=== PATIENT | female | born 1995 | race African-American/Black ===

== ENCOUNTER 2016-12-11 18:37 | Emergency (ER) | payer OTHER ==
[~2016-12-11] VITALS: Ht 157.5 cm; Wt 59.0 kg
[~2016-12-11 18:37] MED LIST: CYCL10TA2 PO; PRED20TA PO; PROAIR HFA8.5 GM INH
[2016-12-11 18:42] VITALS: BP 117/66
--- NOTE | 2016-12-11 19:00 | PHYS DOC ---
Past Medical History Past Medical History: Asthma, Bronchitis Past Surgical History: Other Additional Past Surgical Histo: osteomyelitis in right foot Alcohol Use: None Drug Use: None Adult General Chief Complaint Chief Complaint: FLU SYMPTOM HPI HPI Patient is a 21 year old female who presents the emergency room today with 2 days of nasal congestion, nonproductive cough, generalized body aches and subjective fevers. Patient denies history of heart or lung disease. Patient is a smoker. She denies any known ill contacts with similar symptoms. She denies hospitalization or foreign travel within the past 90 days. Patient states she was on amoxicillin for root canal. This was in the past 2 months. Review of Systems Review of Systems Constitutional: Denies fever or chills [] Eyes: Denies change in visual acuity, redness, or eye pain [] HENT: Denies nasal congestion or sore throat [] Respiratory: Denies cough or shortness of breath [] Cardiovascular: No additional information not addressed in HPI [] GI: Denies abdominal pain, nausea, vomiting, bloody stools or diarrhea [] : Denies dysuria or hematuria [] Musculoskeletal: Denies back pain or joint pain [] Integument: Denies rash or skin lesions [] Neurologic: Denies headache, focal weakness or sensory changes [] Endocrine: Denies polyuria or polydipsia [] Allergies Allergies Allergies Coded Allergies Type Severity Reaction Last Updated Verified morphine Allergy Intermediate 02/15/15 Yes Physical Exam Physical Exam Constitutional: Well developed, well nourished, no acute distress, non-toxic appearance. Patient is afebrile. HENT: Normocephalic, atraumatic, bilateral external ears normal, oropharynx moist, no oral exudates, clear rhinorrhea with inflamed nasal mucosa. Eyes: PERRLA, EOMI, conjunctiva normal, no discharge. [] Neck: Normal range of motion, no tenderness, supple, no stridor. There is no meningismus. There is bilateral anterior posterior cervical lymphadenopathy. Cardiovascular:Heart rate regular rhythm, no murmur [] Lungs & Thorax: There is no respiratory distress respiratory fatigue. There is no posturing. Lung sounds are clear to auscultation bilaterally. Abdomen: Bowel sounds normal, soft, no tenderness, no masses, no pulsatile masses. [] Skin: Warm, dry, no erythema, no rash. [] Back: No tenderness, no CVA tenderness. [] Extremities: No tenderness, no cyanosis, no clubbing, ROM intact, no edema. [] Neurologic: Alert and oriented X 3, normal motor function, normal sensory function, no focal deficits noted. [] Psychologic: Affect normal, judgement normal, mood normal. [] Current Patient Data Vital Signs Vital Signs Date Time Temp Pulse Resp B/P Pulse Ox O2 Delivery O2 Flow Rate FiO2 12/11/16 18:42 98.1 92 18 97 Room Air 98.1 Lab Values Laboratory Tests Test 12/11/16 19:09 12/11/16 20:15 Influenza Type A Antigen Negative (NEGATIVE) Influenza Type B Antigen Negative (NEGATIVE) POC Urine HCG, Qualitative Hcg negative (Negative) EKG EKG [] Radiology/Procedures Radiology/Procedures [] Course & Med Decision Making Course & Med Decision Making Pertinent Labs and Imaging studies reviewed. (See chart for details) [] Dragon Disclaimer Dragon Disclaimer This electronic medical record was generated, in whole or in part, using a voice recognition dictation system. Departure Departure Impression: Primary Impression: Viral syndrome Disposition: HOME, SELF-CARE Condition: GOOD Referrals: NO PCP (PCP) Patient Instructions: Viral Syndrome Additional Instructions: 1. Influenza test here today is negative. 2. test is negative. 3. Viral illnesses run intercourse. They do not work or antibiotics for treatment. You can continue to take acetaminophen and ibuprofen as well as help with the body aches and headache. 4. Take the medication as prescribed. 5. Contact your primary care doctor's office in the morning to schedule follow- up appointment for reevaluation within a week's time. Scripts D-Methorphan Hb/Prometh Hcl (Promethazine-Dm Syrup)118 Ml Syrup5 Ml PO PRN Q6HRS COUGH #120 ML Prov:ALE QUIROZ 12/11/16 ALE QUIROZ Dec 11, 2016 19:00
[2016-12-11 19:51] LABS: OBC FLU VALID
[2016-12-11] MEDS ORDERED: D-ME118S2 PO (20:30)
== END 2016-12-11 20:37 | disposition home or self-care (01) ==
LOC: ER 18:37
DX: B34.9 Viral infection, unspecified (principal); J45.909 Unspecified asthma, uncomplicated; Z88.5 Allergy status to narcotic agent
CPT/HCPCS: 81025; 87804; 99284

== ENCOUNTER 2017-01-07 14:49 | Emergency (ER) | payer OTHER ==
[~2017-01-07] VITALS: Ht 165.1 cm; Wt 60.8 kg
[~2017-01-07 14:49] MED LIST changes: +D-ME118S2 PO
[2017-01-07 15:22] VITALS: BP 129/71
[2017-01-07] MEDS: DIPHTH,PERTUSS(ACELL),TET TOX 0.5 ML DISP.SYRIN. VAX IM ONE ×2 (15:37→15:41)
[2017-01-07] MEDS ORDERED: DIPHENHYDRAMINE HCL 25 MG CAPSULE PO ONE (16:15)
[2017-01-07] MEDS ORDERED: HYDROCODONE/APAP 5/325MG TABLET. PO ONE (16:15)
[2017-01-07] MEDS ORDERED: HYDR-971 PO (16:17)
[2017-01-07] MEDS ORDERED: PROAIR RESPICL90 MCG IH (16:17)
[2017-01-07] MEDS ORDERED: PRED50TA PO (16:17)
[2017-01-07] MEDS ORDERED: SULF1TAB24 PO (16:17)
--- NOTE | 2017-01-07 16:17 | PHYS DOC ---
Past Medical History Past Medical History: Asthma, Bronchitis Past Surgical History: Other Additional Past Surgical Histo: osteomyelitis in right foot Alcohol Use: Occasionally Drug Use: None Adult General Chief Complaint Chief Complaint: ABSCESS HPI HPI Patient is a 21 year old female with history of bronchitis a presents today with right and left inner thigh abscess that she noted 3 days ago. Patient denies any fever or drainage from the area. She also states she has breathing problems from her chronic asthma and would like some medication for this. Review of Systems Review of Systems Constitutional: Denies fever or chills [] Eyes: Denies change in visual acuity, redness, or eye pain [] HENT: Denies nasal congestion or sore throat [] Respiratory: Breathing problems due to asthma Cardiovascular: No additional information not addressed in HPI [] GI: Denies abdominal pain, nausea, vomiting, bloody stools or diarrhea [] : Denies dysuria or hematuria [] Musculoskeletal: Denies back pain or joint pain [] Integument: Right and left inner thigh abscess Neurologic: Denies headache, focal weakness or sensory changes [] Endocrine: Denies polyuria or polydipsia [] Current Medications Current Medications Current Medications Medications (Trade) Dose Ordered Sig/Solange Start Time Stop Time Status Last Admin Dose Admin Acetaminophen/ Hydrocodone Bitart (Lortab 5/325) 2 tab 1X ONCE 01/07/17 16:15 01/07/17 16:16 01/07/17 15:38 2 TAB Diphenhydramine HCl (Benadryl) 25 mg 1X ONCE 01/07/17 16:15 01/07/17 16:16 01/07/17 15:37 25 MG Diphtheria/ Tetanus/Acell Pertussis (Boostrix) 0.5 ml ONCE ONCE 01/07/17 16:15 01/07/17 16:16 Allergies Allergies Allergies Coded Allergies Type Severity Reaction Last Updated Verified morphine Allergy Intermediate 02/15/15 Yes Physical Exam Physical Exam Constitutional: Well developed, well nourished, no acute distress, non-toxic appearance. [] HENT: Normocephalic, atraumatic, bilateral external ears normal, oropharynx moist, no oral exudates, nose normal. [] Eyes: PERRLA, EOMI, conjunctiva normal, no discharge. [] Neck: Normal range of motion, no tenderness, supple, no stridor. [] Cardiovascular:Heart rate regular rhythm, no murmur [] Lungs & Thorax: Bilateral breath sounds clear to auscultation [] Abdomen: Bowel sounds normal, soft, no tenderness, no masses, no pulsatile masses. [] Skin: Right inner thigh with a tiny indurated area approximately 1 x 1 cm suspicious for ingrown hair. The area is warm and tender to palpate but not fluctuant. Left inner thigh has an area of induration approximately 3 x 1 cm, the area is warm and tender to touch, and very fluctuant. Back: No tenderness, no CVA tenderness. [] Extremities: No tenderness, no cyanosis, no clubbing, ROM intact, no edema. [] Neurologic: Alert and oriented X 3, normal motor function, normal sensory function, no focal deficits noted. [] Psychologic: Affect normal, judgement normal, mood normal. [] Current Patient Data Vital Signs Vital Signs Date Time Temp Pulse Resp B/P Pulse Ox O2 Delivery O2 Flow Rate FiO2 01/07/17 15:38 16 Room Air 01/07/17 15:22 98.0 95 99 98.0 EKG EKG [] Radiology/Procedures Radiology/Procedures [] Course & Med Decision Making Course & Med Decision Making Pertinent Labs and Imaging studies reviewed. (See chart for details) Patient has an abscess on the left inner thigh that is ready to drain and one on the right inner thigh that is not ready to be drained. I offered to drain the one on the left inner thigh, patient completely refused. She refused a tetanus shot as well. She was discharged with Bactrim for 10 days, instructed to apply warm compresses to the area. Given prednisone for her asthma and as well as albuterol inhaler. Instructed to follow-up with her PCP in 1-2 weeks. Provided return precautions and discharged in stable condition. Dragon Disclaimer Dragon Disclaimer This electronic medical record was generated, in whole or in part, using a voice recognition dictation system. Departure Departure Impression: Primary Impression: Abscess of lower extremity Additional Impression: Asthma Disposition: 01 HOME, SELF-CARE Condition: STABLE Referrals: NO PCP (PCP) Patient Instructions: Abscess Additional Instructions: You were seen for an abscess on the right inner and left inner thigh. We recommended draining the one on the left inner thigh which you refused. Apply warm compresses to the area. Take the prescribed antibiotics as ordered. Follow- up with your doctor in the course of this week or next week. Scripts Prednisone 50 Mg Tablet1 Tab PO DAILY #5 TAB Prov:TRINY ROMERO APRN 01/07/17 Albuterol Sulfate (Proair Respiclick)90 Mcg Aer.pow.ba1 Puff IH PRN Q6HRS PRN SHORTNESS OF BREATH #1 INHALER Prov:TRINY ROMERO APRN 01/07/17 Hydrocodone/Apap 5-325 ([place] 5-325 Tablet)1 Each Tablet1-2 Tab PO Q4-6HRS #12 TAB Prov:TRINY ROMERO APRN 01/07/17 Sulfamethoxazole/Trimethoprim (Bactrim Ds Tablet)1 Each Tablet1 Tab PO BID #20 TAB Prov:TRINY ROMERO APRN 01/07/17 Problem Qualifiers Additional Impression: Asthma Asthma severity: mild intermittent Asthma complication type: uncomplicated Qualified Code: J45.20 - Mild intermittent asthma, uncomplicated TRINY ROMERO APRN Jan 07, 2017 16:17
== END 2017-01-07 16:25 | disposition home or self-care (01) ==
LOC: ER 14:49
DX: L02.416 Cutaneous abscess of left lower limb (principal); L02.415 Cutaneous abscess of right lower limb; J45.20 Mild intermittent asthma, uncomplicated; M86.9 Osteomyelitis, unspecified; Z88.5 Allergy status to narcotic agent
CPT/HCPCS: 99283; Q0163; 90715

== ENCOUNTER 2017-03-06 13:14 | Emergency (ER) | payer OTHER ==
[~2017-03-06] VITALS: Ht 167.6 cm; Wt 56.2 kg
[~2017-03-06 13:14] MED LIST changes: +HYDR-971 PO; +PRED50TA PO; +PROAIR RESPICL90 MCG IH; +SULF1TAB24 PO
[2017-03-06 13:20] VITALS: BP 110/69
[2017-03-06] MEDS ORDERED: oxyCODONE/APAP 7.5/325 1 TAB TABLET PO ONE (14:00)
[2017-03-06] MEDS ORDERED: BENZ100C PO (14:01)
[2017-03-06] MEDS ORDERED: AZIT250T PO (14:01)
[2017-03-06] MEDS ORDERED: PROAIR RESPICL90 MCG IH (14:01)
[2017-03-06] MEDS ORDERED: PRED50TA PO (14:01)
--- NOTE | 2017-03-06 14:02 | PHYS DOC ---
Past Medical History Past Medical History: Asthma, Bronchitis Past Surgical History: Other Additional Past Surgical Histo: osteomyelitis in right foot Alcohol Use: None Drug Use: None Adult General Chief Complaint Chief Complaint: BACK PAIN OR INJURY [facility] HPI Patient is a 21 year old female with history of asthma and bronchitis who presents today with multiple pain related complaints. Patient states she's had chronic 8 out of 10 low back pain that has been going on for almost 2 years after having an epidural during the delivery of her baby. Patient denies any known injury. Patient is also complaining of chronic dental pain. She states she follows up with her dentist who requested she follows up with a specialist. Patient states she does not have money to pay to see the specialist. She denies any fever or trismus. She is also complaining of chronic bronchitis with cough and nasal congestion for 1-1/2 weeks. Patient states her PCP retired recently Dr. Mantilla usually gives her codeine with promethazine and 7.5/325 of oxycodone. Patient is a smoker. Review of Systems Review of Systems Constitutional: Denies fever or chills [] Eyes: Denies change in visual acuity, redness, or eye pain [] HENT: nasal congestion and dental pain Respiratory: cough Cardiovascular: No additional information not addressed in HPI [] GI: Denies abdominal pain, nausea, vomiting, bloody stools or diarrhea [] : Denies dysuria or hematuria [] Musculoskeletal: back pain Integument: Denies rash or skin lesions [] Neurologic: Denies headache, focal weakness or sensory changes [] Endocrine: Denies polyuria or polydipsia [] Allergies Allergies Allergies Coded Allergies Type Severity Reaction Last Updated Verified morphine Allergy Intermediate 02/15/15 Yes Physical Exam Physical Exam Constitutional: Well developed, well nourished, no acute distress, non-toxic appearance. [] HENT: Normocephalic, atraumatic, bilateral external ears normal, oropharynx moist, no oral exudates, patient sounds congested nasally. Approximately tooth #30 is missing Eyes: PERRLA, EOMI, conjunctiva normal, no discharge. [] Neck: Normal range of motion, no tenderness, supple, no stridor. [] Cardiovascular:Heart rate regular rhythm, no murmur [] Lungs & Thorax: Bilateral breath sounds clear to auscultation [] Abdomen: Bowel sounds normal, soft, no tenderness, no masses, no pulsatile masses. [] Skin: Warm, dry, no erythema, no rash. [] Back: No tenderness, no CVA tenderness. [] Extremities: No tenderness, no cyanosis, no clubbing, ROM intact, no edema. [] Neurologic: Alert and oriented X 3, normal motor function, normal sensory function, no focal deficits noted. [] Psychologic: Affect normal, judgement normal, mood normal. [] Current Patient Data Vital Signs Vital Signs Date Time Temp Pulse Resp B/P (MAP) Pulse Ox O2 Delivery O2 Flow Rate FiO2 03/06/17 13:20 98.2 68 16 99 Room Air 98.2 EKG EKG [] Radiology/Procedures Radiology/Procedures [] Course & Med Decision Making Course & Med Decision Making Pertinent Labs and Imaging studies reviewed. (See chart for details) This is a 21 year old female patient with history of bronchitis from smoking who presents today with multiple pain related complaints including chronic dental pain, chronic back pain, and a cough for 1-1/2 weeks. She states her PCP usually gives her 7.5/325 oxycodone and codeine with promethazine. Informed patient her pain in the ED has been deemed chronic. Recommended she consider smoking cessation and follows up with a doctor from the list with provided. Informed patient we do not give people narcotic pain medicine prescription for chronic pain. She was discharged with azithromycin albuterol inhaler prednisone and Tessalon Perles. Dragon Disclaimer Dragon Disclaimer This electronic medical record was generated, in whole or in part, using a voice recognition dictation system. Departure Departure Impression: Primary Impression: Chronic dental pain Additional Impressions: Chronic back pain Chronic bronchitis Smoking addiction Disposition: HOME, SELF-CARE Condition: STABLE Referrals: NO PCP (PCP) Follow-up with a doctor from the list provided Patient Instructions: Acute Bronchitis, [id number], Back Pain, Adult, Dental Caries Additional Instructions: You were seen for chronic pain and chronic bronchitis. Follow-up with your dentist for dental issues, follow-up with the PCP from the list provided for chronic pain. Scripts Benzonatate (TESSALON PERLE) 100 Mg Capsule 1 CAP PO TID, #30 CAP Prov: LORNAATRINY APRN 03/06/17 Albuterol Sulfate (Proair Respiclick) 90 Mcg Aer.pow.ba 1 PUFF IH PRN Q6HRS Y for SHORTNESS OF BREATH, #1 INHALER Prov: TRINY ROMERO HOG SAWYER 03/06/17 Prednisone (PREDNISONE) 50 Mg Tablet 1 TAB PO DAILY, #5 TAB Prov: TRINY ROMERO HOG SAWYER 03/06/17 Azithromycin (ZITHROMAX) 250 Mg Tablet 1 PKG PO UD, #1 PKG Prov: TRINY ROMERO HOG SAWYER 03/06/17 Problem Qualifiers Additional Impressions: Chronic back pain Back pain location: low back pain Back pain laterality: bilateral Sciatica presence: without sciatica Qualified Codes: M54.5 - Low back pain; G89.29 - Other chronic pain Chronic bronchitis Chronic bronchitis type: unspecified Qualified Codes: J42 - Unspecified chronic bronchitis TRINY ROMERO JAMES March 06, 2017 14:02
== END 2017-03-06 14:21 | disposition home or self-care (01) ==
LOC: ER 13:14
DX: G89.29 Other chronic pain (principal); M54.5 Low back pain; J42 Unspecified chronic bronchitis; K08.89 Other specified disorders of teeth and supporting structures; J45.909 Unspecified asthma, uncomplicated; F17.200 Nicotine dependence, unspecified, uncomplicated; Z88.5 Allergy status to narcotic agent
CPT/HCPCS: 99283

== ENCOUNTER 2017-07-17 17:29 | Emergency (ER) | payer OTHER ==
[~2017-07-17] VITALS: Ht 170.2 cm; Wt 60.8 kg
[~2017-07-17 17:29] MED LIST changes: +AZIT250T PO; +BENZ100C PO
[2017-07-17 17:58] VITALS: BP 138/90
[2017-07-17] MEDS ORDERED: IPRATROPIUM BROMIDE 0.5 MG/2.5 ML NEBU. NEB ONE (18:15)
[2017-07-17] MEDS ORDERED: predniSONE 10 MG TABLET PO ONE (18:15)
[2017-07-17] MEDS ORDERED: ALBUTEROL SULFATE 2.5 MG/3 ML NEBU. NEB ONE (18:15)
--- NOTE | 2017-07-17 18:17 | PHYS DOC ---
Past Medical History Past Medical History: Asthma, Bronchitis Past Surgical History: Other Additional Past Surgical Histo: osteomyelitis in right foot Alcohol Use: None Drug Use: None Adult General Chief Complaint Chief Complaint: ASTHMA HPI HPI Patient is a 21 year old AA female with history of asthma who presents with nasal congestion, wet nonproductive cough, shortness breath and wheezing. Symptom onset 3 days prior to ED arrival. No fever, chills, nausea, vomiting and sweats. Patient has been using home an inhaler with limited relief. Patient is also accompanied with her son who is being treated for an upper respiratory tract infection. Patient is a nonsmoker. Also complaints of chronic right upper posterior molar pain. She is awaiting referral to an oral surgeon for extraction. Denies facial pain, swelling or tenderness. Last menstrual period was 2 months ago. Patient stopped control at that time. Expresses concerns that she may be . No other acute symptoms or complaints. Review of Systems Review of Systems Review symptoms as per history of present illness. All other review symptoms are negative. Current Medications Current Medications Current Medications Medications (Trade) Dose Ordered Sig/Solange Start Time Stop Time Status Last Admin Dose Admin Albuterol Sulfate (Ventolin Neb Soln) 5 mg 1X ONCE 07/17/17 18:15 07/17/17 18:16 Ipratropium [place] (Atrovent) 0.5 mg 1X ONCE 07/17/17 18:15 07/17/17 18:16 Prednisone (Prednisone) 50 mg 1X ONCE 07/17/17 18:15 07/17/17 18:16 Allergies Allergies Allergies Coded Allergies Type Severity Reaction Last Updated Verified morphine Allergy Intermediate 02/15/15 Yes Physical Exam Physical Exam Constitutional: Well developed, well nourished, no acute distress, non-toxic appearance. [] HENT: Normocephalic, atraumatic, bilateral external ears normal, oropharynx moist, no oral exudates, stridor molar tenderness, no soft tissue swelling, as well as, hoarseness or drooling. Nose, congestion with clear rhinorrhea. [] Eyes: PERRLA, EOMI, conjunctiva normal, no discharge. [] Neck: Normal range of motion, no tenderness, supple, no stridor. [] Cardiovascular:Heart rate regular rhythm, no murmur [] Lungs & Thorax: Respirations nonlabored, coarse inspiratory and expiratory wheezes. No retractions. Speaks in complete sentences.[] Abdomen: Bowel sounds normal, soft and nontender.[] Neurologic: Alert and oriented X 3, normal motor function, normal sensory function, no focal deficits noted. [] Psychologic: Affect normal, judgement normal, mood normal. [] Current Patient Data Vital Signs Vital Signs Date Time Temp Pulse Resp B/P (MAP) Pulse Ox O2 Delivery O2 Flow Rate FiO2 07/17/17 17:58 97.6 102 18 99 Room Air 97.6 EKG EKG [] Radiology/Procedures Radiology/Procedures [] Course & Med Decision Making Course & Med Decision Making Pertinent Labs and Imaging studies reviewed. (See chart for details) [Symptoms improved with treatment. Will treat supportively with PCP follow-up. Return precautions reviewed.] Dragon Disclaimer Dragon Disclaimer This electronic medical record was generated, in whole or in part, using a voice recognition dictation system. Departure Departure Impression: Primary Impression: Acute asthma exacerbation Additional Impression: Dental caries Disposition: 01 HOME, SELF-CARE Condition: GOOD Referrals: NO PCP (PCP) Patient Instructions: Asthma, Acute Bronchospasm, Dental Caries-Brief Additional Instructions: Please use albuterol inhaler, 2 puffs every 6 hours, as needed. Take prednisone daily for the next 5 days and antibiotics as directed and follow-up with your local PCP for reevaluation and dentist of choice. Return to the ED if new or worsening symptoms. Problem Qualifiers RUMA KEY DO Jul 17, 2017 18:16
== END 2017-07-17 19:01 | disposition home or self-care (01) ==
LOC: ER 17:29
DX: J45.901 Unspecified asthma with (acute) exacerbation (principal); Z88.5 Allergy status to narcotic agent
CPT/HCPCS: 81025; 94250; 94640; 99284; J7512; J7613; J7644

== ENCOUNTER 2017-10-05 20:21 | Emergency (ER) | payer OTHER ==
[2017-10-05] MEDS: ACETAMINOPHEN 500 MG TABLET PO (20:57)
[2017-10-05] MEDS: cefTRIAXone IM 250 MG VIAL IM (20:58)
== END 2017-10-05 21:11 | disposition home or self-care (01) ==
LOC: ER 20:21
DX: J06.9 Acute upper respiratory infection, unspecified (principal); L02.31 Cutaneous abscess of buttock; K08.89 Other specified disorders of teeth and supporting structures; J45.909 Unspecified asthma, uncomplicated; Z88.5 Allergy status to narcotic agent
CPT/HCPCS: 96372; 99283-25; J0696

== ENCOUNTER 2017-10-06 16:13 | Emergency (ER) | payer OTHER ==
[2017-10-06] MEDS: HYDROcodone/APAP 5/325MG 1 TAB TABLET PO (17:01)
[2017-10-06] MEDS: LIDOCAINE WITH 8.4% SOD BICARB 3 ML DISP.SYRIN. IJ (17:01)
== END 2017-10-06 17:59 | disposition home or self-care (01) ==
LOC: ER 16:13
DX: L02.31 Cutaneous abscess of buttock (principal); J45.909 Unspecified asthma, uncomplicated; Z88.5 Allergy status to narcotic agent
CPT/HCPCS: 10060; 99283-25

== ENCOUNTER 2018-03-29 13:49 | Emergency (ER) | payer OTHER ==
[2018-03-29 14:29] LABS: URINE HCG POC HCG POSITIVE (Negative)
[2018-03-29 14:34] LABS: BILIRUBIN,URINE NEGATIVE (NEG); CLARITY,URINE CLOUDY; COLOR,URINE YELLOW; GLUCOSE,URINE NEGATIVE (NEG); NITRITE,URINE NEGATIVE (NEG); PH,URINE 6.5; PROTEIN,URINE NEGATIVE (NEG-TRACE)
[2018-03-29] MEDS: IPRATRPIUM/ALBUTEROL 0.5/2.5MG 3 ML NEBU. NEB (14:39)
[2018-03-29 15:01] LABS: BACTERIA,URINE MODERATE /HPF (0-FEW); SQUAMOUS EPITHELIAL CELL,UR MANY /LPF; TRICHOMONAS,URINE PRESENT
[2018-03-29] MEDS: cefTRIAXone IM 250 MG VIAL IM (15:34)
[2018-03-29] MEDS: AZITHROMYCIN 250 MG TABLET. PO (15:35)
[2018-03-29] MEDS: metroNIDAZOLE 500 MG TABLET PO (15:35)
== END 2018-03-29 16:00 | disposition home or self-care (01) ==
LOC: ER 16:00
DX: O99.519 Diseases of the respiratory system complicating pregnancy, unspecified trimester (principal); O98.319 Other infections with a predominantly sexual mode of transmission complicating pregnancy, unspecified trimester; O23.40 Unspecified infection of urinary tract in pregnancy, unspecified trimester; J06.9 Acute upper respiratory infection, unspecified; A59.01 Trichomonal vulvovaginitis; J45.909 Unspecified asthma, uncomplicated; Z88.5 Allergy status to narcotic agent; Z3A.00 Weeks of gestation of pregnancy not specified
CPT/HCPCS: 81001; 81025; 87086; 94640; 96372; 99284; J0696; J7620; Q0144

== ENCOUNTER 2020-02-07 12:42 | Emergency (ER) | payer MEDICAID, OTHER ==
[~2020-02-07] VITALS: Ht 165.1 cm; Wt 59.5 kg
[~2020-02-07 12:42] MED LIST changes: +ALBU2.5V8 INH; +CLIN150C14 PO; -D-ME118S2 PO; +HYDR-3164 PO; -HYDR-971 PO; +NITR100C62 PO; -PROAIR HFA8.5 GM INH; +PROM118S9 PO
[2020-02-07 12:53] VITALS: BP 134/63
[2020-02-07] MEDS ORDERED: LIDOCAINE 1% Multi-Dose 20 ML VIAL. INJ ONE (13:30)
[2020-02-07] MEDS ORDERED: SULF1TAB24 PO (14:10)
[2020-02-07] MEDS ORDERED: ONDA4TAB12 PO (14:10)
[2020-02-07] MEDS ORDERED: HYDR-3164 PO (14:10)
--- NOTE | 2020-02-07 14:10 | PHYS DOC ---
Past Medical History Past Medical History: Asthma, Bronchitis Past Surgical History: Other Additional Past Surgical Histo: osteomyelitis in right foot Smoking Status: Current Every Day Smoker Alcohol Use: None Drug Use: None General Adult EDM: Chief Complaint: INSECT BITE HPI: HPI: Patient is a 24-year-old otherwise healthy female who presents with a swollen tender area in her left armpit. She states this been ongoing for several days now. She says she did not come in sooner because she thought the swelling would go down but it has done nothing but increase in size over the last several days. She has not had any fever chills or sweats. [] Review of Systems: Review of Systems: Constitutional: Denies fever or chills. [] Eyes: Denies change in visual acuity. [] HENT: Denies nasal congestion or sore throat. [] Respiratory: Denies cough or shortness of breath. [] Cardiovascular: Denies chest pain or edema. [] GI: Denies abdominal pain, nausea, vomiting, bloody stools or diarrhea. [] : Denies dysuria. [] Musculoskeletal: Denies back pain or joint pain. [] Integument: Abscess as described in HPI. [] Neurologic: Denies headache, focal weakness or sensory changes. [] Endocrine: Denies polyuria or polydipsia. [] Lymphatic: Denies swollen glands. [] Psychiatric: Denies depression or anxiety. [] Heart Score: Risk Factors: Risk Factors: DM, Current or recent (<one month) smoker, HTN, HLP, family history of CAD, obesity. Risk Scores: Score 0 - 3: 2.5% MACE over next 6 weeks - Discharge Home Score 4 - 6: 20.3% MACE over next 6 weeks - Admit for Clinical Observation Score 7 - 10: 72.7% MACE over next 6 weeks - Early Invasive Strategies Current Medications: Current Medications Medications (Trade) Dose Ordered Sig/Solange Start Time Stop Time Status Last Admin Dose Admin Lidocaine HCl (Lidocaine 1% 20ml Vial) 20 ml 1X ONCE 02/07/20 13:30 02/07/20 13:31 DC 02/07/20 13:19 20 ML Allergies: Allergies: Allergies Coded Allergies Type Severity Reaction Last Updated Verified morphine Allergy Intermediate 02/15/15 Yes Physical Exam: PE: Constitutional: Well developed, well nourished, moderate e distress, non-toxic appearance. [] HENT: Normocephalic, atraumatic, bilateral external ears normal, oropharynx moist, no oral exudates, nose normal. [] Eyes: PERRLA, EOMI, conjunctiva normal, no discharge. [] Neck: Normal range of motion, no tenderness, supple, no stridor. [] Cardiovascular:Heart rate regular rhythm, no murmur [] Lungs & Thorax: Bilateral breath sounds clear to auscultation [] Abdomen: Bowel sounds normal, soft, no tenderness, no masses, no pulsatile masses. [] Skin: She has a golf ball size abscess in her left axilla. [] Back: No tenderness, no CVA tenderness. [] Extremities: No tenderness, no cyanosis, no clubbing, ROM intact, no edema. [] Neurologic: Alert and oriented X 3, normal motor function, normal sensory function, no focal deficits noted. [] Psychologic: Extremely anxious [] Current Patient Data: Vital Signs: Vital Signs Date Time Temp Pulse Resp B/P (MAP) Pulse Ox O2 Delivery O2 Flow Rate FiO2 02/07/20 12:53 98.2 76 16 134/63 (86) 100 Room Air 98.2 EKG: EKG: [] Radiology/Procedures: Radiology/Procedures: [] Course & Med Decision Making: Course & Med Decision Making Pertinent Labs and Imaging studies reviewed. (See chart for details) [Procedure: Incision and drainage The abscess in the left axilla was anesthetized with 10 cc of 1% lidocaine and then using an 11 blade a 1.5 cm incision was made over the dome of the abscess and a large amount of purulent material was expressed. Patient tolerated the procedure well] Shikha Disclaimer: Shikha Disclaimer: This electronic medical record was generated, in whole or in part, using a voice recognition dictation system. Departure Departure Impression: Primary Impression: Abscess of left axilla Disposition: 01 HOME, SELF-CARE Condition: IMPROVED Referrals: NO PCP (PCP) Patient Instructions: Abscess, Abscess, Care After Scripts Ondansetron (ONDANSETRON ODT) 4 Mg Tab.rapdis 1 TAB PO PRN Q6-8HRS for VOMITING, #20 TAB Prov: MAME RAMIREZ DO 02/07/20 Hydrocodone/Apap 5-325 ([place] 5-325 TABLET) 1 Each Tablet 1 TAB PO PRN Q6HRS PRN for PAIN, #15 TAB 0 Refills Prov: MAME RAMIREZ DO 02/07/20 Sulfamethoxazole/Trimethoprim (BACTRIM DS TABLET) 1 Each Tablet 1 TAB PO BID, #14 TAB Prov: MAME RAMIREZ DO 02/07/20 MAME RAMIREZ DO February 07, 2020 14:10
== END 2020-02-07 14:20 | disposition home or self-care (01) ==
LOC: ER 12:42
DX: L02.412 Cutaneous abscess of left axilla (principal); J45.909 Unspecified asthma, uncomplicated; F17.200 Nicotine dependence, unspecified, uncomplicated; Z88.5 Allergy status to narcotic agent
CPT/HCPCS: 10060; 99283; J3490